=== PATIENT | male | born 1980 ===

== ENCOUNTER 2021-11-03 19:34 | Emergency (ER) | payer SELFPAY ==
[2021-11-03] MEDS ORDERED: Diazepam 10 MG/2 ML SYRINGE ONE (20:08)
[2021-11-03] MEDS ORDERED: Ondansetron PF 4 MG/2 ML Vial ONE (20:08)
[2021-11-03] MEDS ORDERED: Morphine 4 MG/ML VIAL ONE (20:08)
[2021-11-03] MEDS ORDERED: Acetaminophen 500 MG TAB ONE (20:08)
== END 2021-11-03 22:14 | disposition home or self-care (01) ==
LOC: CSHERS 19:34
DX: M54.16 Radiculopathy, lumbar region (principal); W19.XXXA Unspecified fall, initial encounter; Y93.01 Activity, walking, marching and hiking; Z85.47 Personal history of malignant neoplasm of testis; Z79.899 Other long term (current) drug therapy
CPT/HCPCS: 72131; 96374; 96375; J2270; J2405; J3360